=== PATIENT | female | born 1960 | race Caucasian/White ===

== ENCOUNTER → 2021-02-20 | Outpatient (CLI) | payer BC | LOC: KOH-I 10:01 | DX: M54.5 Low back pain (principal); G95.89 Other specified diseases of spinal cord; M47.816 Spondylosis without myelopathy or radiculopathy, lumbar region; M25.78 Osteophyte, vertebrae | CPT/HCPCS: 72110 ==

== ENCOUNTER → 2022-08-05 | Outpatient (CLI) | payer BC | LOC: KOH-I 14:31 | DX: M25.571 Pain in right ankle and joints of right foot (principal); S92.351A Displaced fracture of fifth metatarsal bone, right foot, initial encounter for closed fracture | CPT/HCPCS: 73610; 73630 ==